=== PATIENT | female | born 1985 | race Asian ===

== ENCOUNTER 2017-07-27 13:33 | Outpatient (CLI) | payer MEDICAID | END 2017-07-27 13:34 | disposition critical access hospital (66) | LOC: EMS 13:33 | PROVIDERS: ATTEND Surgery | DX: M54.2 Cervicalgia (principal); R51 Headache; M25.551 Pain in right hip; M25.552 Pain in left hip; V80.010A Animal-rider injured by fall from or being thrown from horse in noncollision accident, initial encounter; Y93.52 Activity, horseback riding; Y92.832 Beach as the place of occurrence of the external cause | CPT/HCPCS: A0425; A0427 ==

== ENCOUNTER 2017-07-27 14:03 | Emergency (ER) | payer MEDICAID ==
--- NOTE | 2017-07-27 14:18 | ED Physician Documentation ---
History of Present Illness - Stated complaint Stated Complaint: FALL FROM HORSE - Chief complaint Chief Complaint: General - Additonal information Additional information: hx from pt 31 f s/p tubal not preg riding horse no helmet horse spooked 2/2 kite pt fell off landed on and hit head no LOC severe FELIZ and also upper neck pain and landed on R hip and has kun hip and low back/sacral pain no numbness or weakness except for tingling to feet Review of Systems Cardiac: denies: Chest pain / pressure Respiratory: denies: Dyspnea GI: denies: Abdominal Pain, Nausea, Vomiting : denies: Now EGA Endocrine: denies: Easy bruising / bleeding Immunocompromised: denies: Immunocompromised PD PAST MEDICAL HISTORY - Present Medications Home Medications: Ambulatory Orders Medication Instructions Recorded Confirmed Carisoprodol [Soma] 350 mg PO Q8H PRN #15 tablet 07/27/17 Ibuprofen [Motrin] 400 mg PO Q6H PRN #30 tablet 07/27/17 Lidocaine Patch 5% [Lidoderm Patch] 1 each TOP DAILY PRN #10 patch 07/27/17 - Allergies Allergies/Adverse Reactions: Allergies Allergy/AdvReac Type Severity Reaction Status Date / Time hydrocodone Allergy Unknown Verified 07/27/17 14:08 meloxicam Allergy Unknown Verified 07/27/17 14:08 PD ED PE NORMAL - Vitals Vital signs reviewed: Yes - General General: Alert and oriented X 3 - HEENT HEENT: Atraumatic, PERRL - Neck Neck: No: No bony TTP (+ C12 pain - remains collared thougn, log rolled off board) - Respiratory Respiratory: No respiratory distress - Abdomen Abdomen: Soft, Non tender - Back Back: Other (TTP sacral region no vis bruise) - Derm Derm: Normal color - Extremities Extremities: Other (kun hip TT not short or roatted) - Neuro Neuro: Alert and oriented X 3, 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, No motor deficit, No sensory deficit, Normal speech Eye Opening: Spontaneous Motor: Obeys Commands Verbal: Oriented GCS Score: 15 Results - Vitals Vitals: Vital Signs - 24 hr 07/27/17 07/27/17 07/27/17 14:10 17:50 19:20 Temperature 37.1 C Heart Rate 86 77 85 Respiratory 21 18 18 Rate Blood Pressure 132/84 H 112/73 118/74 O2 Saturation 100 97 98 Oxygen O2 Source Room air - Rads (name of study) CTH Radiology: See rad report (no acute) CT CS Radiology: See rad report (no fx but anterolisthesis C5 on C6 without degen changes to explain could represent ligamentous injury) pelvis Radiology: See rad report (neg) MRI C spine Radiology: See rad report (no ligamentous injury, unchanged minimal grade 1 anterolisthesis C5/6, small disk osteophyte complex C56 without canal stenosis C34 45 and at C67 and C7T1 abut the sac but no central canal stenosis) PD MEDICAL DECISION MAKING - ED course ED course: pt spine cleared after MRI her head neck etc still hurt also developed shoulder pain during ER visit and I examined that - no defmoruty , fill ROM, MSV intact, given delayed onset pain doubt fx and dont feel more imaging needed will dc Departure - Departure Disposition: 01 Home, Self Care Clinical Impression: Low back sprain Qualifiers: Encounter type: initial encounter Qualified Code(s): S33.9XXA - Sprain of unspecified parts of lumbar spine and pelvis, initial encounter Head injury Qualifiers: Encounter type: initial encounter Qualified Code(s): S09.90XA - Unspecified injury of head, initial encounter Neck sprain Qualifiers: Encounter type: initial encounter Qualified Code(s): S13.9XXA - Sprain of joints and ligaments of unspecified parts of neck, initial encounter Condition: Good Instructions: ED Head Injury Closed, ED Neck Back Pain General, ED Sprain Strain Neck Prescriptions: Carisoprodol [Soma] 350 mg PO Q8H PRN #15 tablet PRN Reason: muscle spasm Ibuprofen [Motrin] 400 mg PO Q6H PRN #30 tablet PRN Reason: Pain Lidocaine Patch 5% [Lidoderm Patch] 1 each TOP DAILY PRN #10 patch PRN Reason: Pain Comments: Thankfully the CT scan if your head, the MRI of your neck, and the xray of your pelvis were all fine and there is no spine or brain or bone damage That does not mean you are not hurt and wont be very sore for the next few days. I have prescribed several different types of medications to help ease your symptoms Please follow up with your PMD if not getting better by the end of the week. Return to the ER if worse Forms: Activity restrictions Discharge Date/Time: 07/27/17 19:23
--- NOTE | 2017-07-27 15:03 | CT Preliminary Report ---
Exam: CT HEAD W/O IMPRESSION: No acute or focal intracranial abnormality seen. [facility] SITE ID: [id number]
--- NOTE | 2017-07-27 15:03 | CT Report ---
EXAM: CT HEAD EXAM DATE: 07/27/2017 02:47 PM. CLINICAL HISTORY: Fell off horse hit head, no helmet, headache. COMPARISON: None. TECHNIQUE: Multiaxial CT images were obtained from the foramen magnum to the vertex. Reformats: Coron al. IV contrast: None. In accordance with CT protocol optimization, one or more of the following dose reduction techniques w ere utilized for this exam: automated exposure control, adjustment of mA and/or KV based on patient s ize, or use of iterative reconstructive technique. FINDINGS: Parenchyma: No intraparenchymal hemorrhage. No evidence of mass, midline shift, or CT findings of inf arction. Calderon-white differentiation is distinct. Extraaxial Spaces: Normal for age. No subdural or epidural collections identified. Ventricles: Normal in size and position. Sinuses and Orbits: Imaged paranasal sinuses, orbits, and mastoids show no significant abnormality. Bones: No evidence for acute skull fracture. Right superior frontal skull metal hardware. IMPRESSION: No acute or focal intracranial abnormality seen. [facility] Referring Provider Line: [phone] SITE ID: [id number]
--- NOTE | 2017-07-27 15:08 | CT Preliminary Report ---
Exam: CT CERVICAL SPINE W/O IMPRESSION: 1. No evidence for acute fracture. 2. Mild anterolisthesis at C5-C6 measuring 3 mm. No associated degenerative changes to explain the an terolisthesis. This could represent ligamentous injury. Correlate clinically. [facility] SITE ID: [id number]
--- NOTE | 2017-07-27 15:08 | CT Report ---
EXAM: CT CERVICAL SPINE WITHOUT CONTRAST DATE: 07/27/2017 02:47 PM. HISTORY: Fell off horse headache C1 2 pain. COMPARISONS: None. TECHNIQUE: Thin-section axial images were acquired of the cervical spine without contrast. Post-proce ssing: Coronal and sagittal reformats. Other: None. In accordance with CT protocol optimization, one or more of the following dose reduction techniques w ere utilized for this exam: automated exposure control, adjustment of mA and/or KV based on patient s ize, or use of iterative reconstructive technique. FINDINGS: Alignment: 3 mm of anterolisthesis seen at C5-C6. Bones: No fracture or bone lesion. Interspace Levels/Facets: Unremarkable. Other: No acute soft tissue findings. IMPRESSION: 1. No evidence for acute fracture. 2. Mild anterolisthesis at C5-C6 measuring 3 mm. No associated degenerative changes to explain the an terolisthesis. This could represent ligamentous injury. Correlate clinically. [facility] Referring Provider Line: [phone] SITE ID: [id number]
--- NOTE | 2017-07-27 15:09 | XRAY Preliminary Report ---
Exam: XR PELVIS 1 VIEW IMPRESSION: Normal pelvis radiography. [facility] SITE ID: [id number]
--- NOTE | 2017-07-27 15:09 | XRAY Report ---
EXAM: PELVIS RADIOGRAPHY EXAM DATE: 07/27/2017 02:52 PM. CLINICAL HISTORY: Fell off horse kun hip and sacral pain. COMPARISON: None. TECHNIQUE: 1 view. FINDINGS: Bones: Normal. No fracture or bone lesion. Joints: The visualized hip, pubis symphysis, and sacroiliac joints are preserved. No subluxation. Soft Tissues: Normal. No soft tissue swelling. IMPRESSION: Normal pelvis radiography. [facility] Referring Provider Line: [phone] SITE ID: [id number]
[2017-07-27] MEDS ORDERED: MORPHINE 2 MG/ML SYRINGE IVP STA (16:23)
--- NOTE | 2017-07-27 17:49 | MRI Preliminary Report ---
Exam: MRI CERVICAL SPINE W/O Impression: 1. There is no evidence of ligamentous injury. 2. There is an unchanged minimal grade 1 anterolisthesis of C5 on C6. 3. There is a small disk osteophyte complex as C5-C6 but without significant central canal stenosis. 4. There are minimal disk osteophyte complexes but without significant central canal stenoses at C3-C 4 and C4-C5, respectively. 5. There are small disk osteophyte complexes abutting the sac but without significant central canal s tenoses at C6-C7 and C7-T1. SITE ID: [id number]
--- NOTE | 2017-07-27 18:21 | MRI Report ---
EXAM: MRI CERVICAL SPINE WITHOUT CONTRAST EXAM DATE: 07/27/2017 05:33 PM. CLINICAL HISTORY: Fall, CS pain, C5-C6 anterolisthesis on CT. COMPARISONS: CT of the cervical spine without contrast 07/27/2017. TECHNIQUE: Multiplanar, multisequence T1-weighted and fluid-sensitive sequences of the cervical spine without contrast. Other: None. FINDINGS: There is straightening of the normal cervical lordosis. The bone marrow signal intensities are normal . There is an unchanged grade 1 anterolisthesis of C5 on C6. The anterior longitudinal ligament, posterior longitudinal ligament, ligamentum flavum and the supras pinous ligaments appear to be grossly intact. C2-C3: There is no significant disk bulge, central or foraminal stenosis. The facets are normal. C3-C4: There is a minimal disk osteophyte complex abutting the sac without significant central canal stenosis. The facets are normal. There is no significant foraminal stenosis. C4-C5: There is a minimal disk osteophyte complex abutting the sac without significant central canal stenosis. There is no significant foraminal stenosis. The facets are normal. C5-C6: There is a grade 1 anterolisthesis of C5 on C6. There is a small disk osteophyte complex abutt ing the sac but without significant central canal stenosis. The facets are normal. There is no signif icant foraminal stenosis. C6-C7: There is a small disk osteophyte complex abutting the sac but without significant central greg l stenosis. The remainder of the level is normal. C7-T1: There is a small central disk osteophyte without significant central canal stenosis. The remai nder of the level is normal. IMPRESSION: 1. There is no evidence of ligamentous injury. 2. There is an unchanged minimal grade 1 anterolisthesis of C5 on C6. 3. There is a small disk osteophyte complex as C5-C6 but without significant central canal stenosis. 4. There are minimal disk osteophyte complexes but without significant central canal stenoses at C3-C 4 and C4-C5, respectively. 5. There are small disk osteophyte complexes abutting the sac but without significant central canal s tenoses at C6-C7 and C7-T1. Referring Provider Line: [phone] SITE ID: [id number]
[2017-07-27] MEDS ORDERED: KETOROLAC 60 MG/2 ML VIAL IVP STA (18:48)
[2017-07-27] MEDS ORDERED: LIDOCAINE PATCH 5% TOP PRN (18:48)
[2017-07-27] MEDS ORDERED: ACETAMINOPHEN 325 MG TABLET PO STA (18:48)
[2017-07-27] MEDS ORDERED: CYCLOBENZAPRINE 10 MG TABLET PO STA (18:48)
[2017-07-27 19:21] VITALS: BP 118/74
== END 2017-07-27 19:23 | disposition home or self-care (01) ==
LOC: ED 14:03
DX: S33.9XXA Sprain of unspecified parts of lumbar spine and pelvis, initial encounter (principal); S09.90XA Unspecified injury of head, initial encounter; S13.9XXA Sprain of joints and ligaments of unspecified parts of neck, initial encounter; V80.010A Animal-rider injured by fall from or being thrown from horse in noncollision accident, initial encounter; Y93.52 Activity, horseback riding
CPT/HCPCS: 70450; 72125; 72141; 72170; 96374; 96375; 99283; A9270; J2270